=== PATIENT | female | born 1990 | race Caucasian/White ===

== ENCOUNTER 2017-04-05 10:24 | Observation (INO) | payer OTHER ==
[2017-04-05 10:42] VITALS: RESP 18; TEMP 98.9
[2017-04-05] MEDS ORDERED: Sodium Chloride 0.9% 1,000 ML IV STA (11:18)
--- NOTE | 2017-04-05 11:22 | ED PDOC ---
Arrival/HPI - General Historian: Patient - History of Present Illness Time/Duration: Other (2 days) Symptom Course: Unchanged Activities at Onset: Light Context: Home <Joshua Evans - Last Filed: 04/05/17 19:25> <James Herrera - Last Filed: 04/05/17 19:54> - General Chief Complaint: Abdominal Pain Time Seen by Provider: 04/05/17 11:13 - History of Present Illness Narrative History of Present Illness (Text): 04/05/17 11:18 26 year old female, who denies any prior medical history, presents to the emergency department complaining of epigastric and left lower abdominal pain. Patient states she went to [facility] on 02/25/17 for the same complaint, but was discharged and recommended to follow up for GI doctor. She also stated that no GI offices are opened until tomorrow, but could not handle the pain. Patient has been excessively vomiting and diarrhea 4 times a day, but denies any fever, chills, chest pain, shortness of breath, vaginal bleeding, dysuria, urinary symptoms, back pain, neck pain, headache, dizziness, or any other complaints. PMD: Dr. Horner (Joshua Evnas) Past Medical History - Provider Review Nursing Documentation Reviewed: Yes - Infectious Disease Hx of Infectious Diseases: None - Psychiatric Hx Substance Use: No <Joshua Evans - Last Filed: 04/05/17 19:25> Family/Social History - Physician Review Nursing Documentation Reviewed: Yes Family/Social History: No Known Family HX Smoking Status: Light Smoker < 10 Cigarettes Daily Hx Alcohol Use: No Hx Substance Use: No <Joshua Evans - Last Filed: 04/05/17 19:25> Allergies/Home Meds <Joshua Evans - Last Filed: 04/05/17 19:25> <James Herrera - Last Filed: 04/05/17 19:54> Allergies/Adverse Reactions: Allergies No Known Allergies Allergy (Verified 04/05/17 10:42) Home Medications: Home Meds Medication Instructions Recorded Confirmed Unobtainable 04/05/17 04/05/17 Review of Systems - Physician Review All systems were reviewed & negative as marked: Yes - Review of Systems Constitutional: absent: Fevers, Other (Chills) Respiratory: absent: SOB Cardiovascular: absent: Chest Pain Gastrointestinal: Abdominal Pain (epigastric and left-sided abdominal pain. ), Diarrhea, Vomiting. absent: Nausea Genitourinary Female: absent: Dysuria, Frequency, Hematuria, Vaginal Bleeding, Vaginal Discharge Musculoskeletal: absent: Back Pain Neurological: absent: Headache, Dizziness <NathanJoshua L - Last Filed: 04/05/17 19:25> Physical Exam Vital Signs Reviewed: Yes Temperature: Afebrile Blood Pressure: Normal Pulse: Regular Respiratory Rate: Normal Appearance: Positive for: Well-Appearing, Non-Toxic, Comfortable Pain Distress: None Mental Status: Positive for: Alert and Oriented X 3 - Systems Exam Head: Present: Atraumatic, Normocephalic Pupils: Present: PERRL Extroacular Muscles: Present: EOMI Mouth: Present: Moist Mucous Membranes Neck: Present: Normal Range of Motion Respiratory/Chest: Present: Clear to Auscultation, Good Air Exchange. No: Respiratory Distress, Accessory Muscle Use Cardiovascular: Present: Regular Rate and Rhythm, Normal S1, S2. No: Murmurs Abdomen: Present: Tenderness (Epigastric, midlower, left sided tenderness), Normal Bowel Sounds, Guarding. No: Distention, Peritoneal Signs, Rebound Back: Present: Normal Inspection. No: CVA Tenderness, Midline Tenderness, Paraspinal Tenderness Upper Extremity: Present: Normal Inspection. No: Cyanosis, Edema Lower Extremity: Present: Normal Inspection. No: Edema Neurological: Present: GCS=15, CN II-XII Intact, Speech Normal Skin: Present: Warm, Dry, Normal Color. No: Rashes Psychiatric: Present: Alert, Oriented x 3, Normal Insight, Normal Concentration <NathanJoshua L - Last Filed: 04/05/17 19:25> Medical Decision Making - Lab Interpretations I have reviewed the lab results: Yes Interpretation: Abnormal lab values (potassium low and replaced) <Joshua Evans - Last Filed: 04/05/17 19:25> <James Herrera - Last Filed: 04/05/17 19:54> ED Course and Treatment: 04/05/17 11:18 Impression: 26 year old female presents complaining of epigastric, midlower, left sided abdominal pain that began 2 days ago. Associated symptoms include vomiting and diarrhea. Ddx: Gastritis vs Gastroenteritis vs Colitis vs Pancreatitis Plan: -- CT Abdomine/Pelvis and IV contrast -- Labs -- IV Fluids -- Toradol -- Zofran Inj -- Reassess and disposition Progress Notes: (Joshua Evans) - Medication Orders Current Medication Orders: Discontinued Medications Sodium Chloride (Sodium Chloride 0.9%) 1,000 mls @ 1,000 mls/hr IV .Q1H STA Stop: 04/05/17 12:17 Last Admin: 04/05/17 11:39 Dose: 1,000 mls/hr Iohexol (Omnipaque 240 (50 Ml)) Confirm Administered Dose 50 ml .ROUTE .STK-MED ONE Stop: 04/05/17 11:24 Iohexol (Omnipaque 350 100 Ml) Confirm Administered Dose 350 mg .ROUTE .STK-MED ONE Stop: 04/05/17 15:21 Ketorolac Tromethamine (Toradol) 30 mg IVP STAT STA Stop: 04/05/17 11:19 Last Admin: 04/05/17 11:43 Dose: 30 mg Re-Assess: REI Pain Assessment Document 04/05/17 12:43 GMD (Rec: 04/05/17 13:06 GMD [id number]) Pain Reassessment Is this a pain reassessment? Yes Sleep Is patient sleeping during reassessment? No Presence of Pain Presence of Pain Yes Pain Scale Used Pain Scale Used Numeric Location Left, Right or Bilateral Right Upper or Lower Upper Pain Location Body Site Abdomen Description Intensity of Pain at present 9 Morphine Sulfate (Morphine) 4 mg IVP STAT STA Stop: 04/05/17 13:05 Last Admin: 04/05/17 13:13 Dose: 4 mg Ondansetron HCl (Zofran Inj) 4 mg IVP STAT STA Stop: 04/05/17 11:19 Last Admin: 04/05/17 11:43 Dose: 4 mg Ondansetron HCl (Zofran Inj) 4 mg IVP STAT STA Stop: 04/05/17 13:23 Last Admin: 04/05/17 13:31 Dose: 4 mg Potassium Chloride (K-Dur 20 Meq Er Tab) 40 meq PO ONCE ONE Stop: 04/05/17 13:26 Last Admin: 04/05/17 16:28 Dose: 40 meq ED OBSERVATION <Joshua Evans - Last Filed: 04/05/17 19:25> Discharge: Yes <James Herrera - Last Filed: 04/05/17 19:54> - Observation admission statement Patient is being placed in observation because:: Patient is being placed for epigastric, midlower, and left sided pain and tenderness since for the past 2 days. (Joshua Evans) - Goals of Observation Goals of observation are:: . (Joshua Evans) - Progress Note Progress Note: 04/05/17 11:21 Patient has been examined and will remain under Emergency department observation until ultimate goal of diagnosis. Patient currently in pain. 04/05/17 13:26 Patient remains in pain. Morphine was ordered 04/05/17 13:04 04/05/17 18:03 CT showed left pelvic dermoid cyst in the adnexal. TV sono ordered. 04/05/17 19:[address] Herrera who will f/u [facility], reeval and dispo ( Joshua Evans) 04/05/17 19:51 Case endorsed to me from pending TV ultrasound prior to discharge.Ultrasound confirms prior CT finding of dermoisd cyst.No torsion.Pt. 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 (James Herrera) - Scribe Statement The provider has reviewed the documentation as recorded by the Scribe <Joshua Evans - Last Filed: 04/05/17 19:25> <James Herrera - Last Filed: 04/05/17 19:54> - Scribe Statement Prabhu Jackson All medical record entries made by the Scribe were at my direction and personally dictated by me. I have reviewed the chart and agree that the record accurately reflects my personal performance of the history, physical exam, medical decision making, and the department course for this patient. I have also personally directed, reviewed, and agree with the discharge instructions and disposition. (Joshua Evans) Disposition/Present on Arrival - Present on Arrival Any Indicators Present on Arrival: No History of DVT/PE: No History of Uncontrolled Diabetes: No Urinary Catheter: No History of Decub. Ulcer: No History Surgical Site Infection Following: None - Disposition Have Diagnosis and Disposition been Completed?: Yes Disposition Time: 16:49 <Joshua Evans - Last Filed: 04/05/17 19:25> - Present on Arrival Any Indicators Present on Arrival: No - Disposition Have Diagnosis and Disposition been Completed?: Yes Disposition Time: 19:54 Patient Plan: Discharge <James eHrrera - Last Filed: 04/05/17 19:54> - Disposition Diagnosis: Abdominal pain, Ovarian cyst Patient Problems: Current Active Problems Problem Status Onset Abdominal pain Acute Condition: GOOD
[2017-04-05] MEDS ORDERED: Iohexol 240 (50 ml) ONE (11:23)
[2017-04-05 11:45] LABS: BASO # 0.01 K/mm3 (0.0-2.0); BASO % 0.1 % (0.0-3.0); EOS % 0.3 % (1.5-5.0); GRAN # 7.13 (1.4-6.5); GRAN % 67.9 % (50.0-68.0); HEMATOCRIT 41.5 % (36.0-48.0); LYMPH # 2.4 (1.2-3.4); LYMPH % 22.5 % (22.0-35.0); MEAN CELL VOLUME 88.9 fl (80.0-105.0); MEAN CORPUSCULAR HGB CONC 34.9 g/dl (31.0-37.0); MEAN PLATELET VOLUME 8.7 fl (7.0-11.0); MONO % 9.2 % (1.0-6.0); RED CELL DISTRIBUTION WIDTH 13.5 % (11.5-14.5); WHITE BLOOD COUNT 10.5 10^3/ul (4.5-11.0)
[2017-04-05 11:46] LABS: PH,URINE 7.5 (4.7-8.0); URINE BILIRUBIN NEGATIVE (NEGATIVE); URINE BLOOD TRACE-INTACT (NEGATIVE); URINE GLUCOSE (UA) NEGATIVE (NEGATIVE); URINE KETONE 15 mg/dL (NEGATIVE); URINE LEUKOCYTE ESTERASE NEGATIVE Leu/uL (NEGATIVE); URINE PROTEIN TRACE mg/dL (<30 mg/dL)
[2017-04-05 12:00] LABS: URINE APPEARANCE CLEAR (CLEAR); URINE COLOR YELLOW (YELLOW)
[2017-04-05 12:26] LABS: ALB/GLOB RATIO 1.4 (1.1-1.8); ALKALINE PHOSPHATASE 53 U/L (38-126); ALT/SGPT 64 U/L (7-56); AST/SGOT 36 U/L (14-36); BILIRUBIN,TOTAL 0.6 mg/dL (0.2-1.3); BLOOD UREA NITROGEN 7 mg/dL (7-21); CALCIUM 9.1 mg/dL (8.4-10.5); CARBON DIOXIDE 28 mmol/L (21-33); CHLORIDE 102 mmol/L (98-107); GFR AFRICAN-AMERICAN > 60; GLUCOSE,RANDOM 91 mg/dL (70-110); LIPASE 43 U/L (23-300); POTASSIUM 3.2 mmol/L (3.6-5.0); SODIUM 139 mmol/L (132-148); TOTAL PROTEIN 6.7 g/dL (5.8-8.3)
[2017-04-05 12:55] VITALS: O2SAT 100
[2017-04-05 13:00] LABS: URINE EPITHELIAL CELLS 0 - 2 /hpf (0-5); URINE WBC 0 - 2 /hpf (0-6)
[2017-04-05] MEDS ORDERED: Morphine 4 mg/ml ISec IVP STA (13:04)
[2017-04-05 13:09] LABS: INR 1.11 (0.93-1.08); PARTIAL THROMBOPLASTIN TIME 26.9 Seconds (23.7-30.8)
[2017-04-05] MEDS: Potassium Chloride 20 mEq ER Tab PO ONE ×3 (13:55→16:28)
[2017-04-05] MEDS ORDERED: Iohexol 350 MG/100 ML VIAL ONE (15:20)
--- NOTE | 2017-04-05 16:42 | CT ---
PROCEDURE: CT Abdomen and Pelvis with contrast HISTORY: Abdominal pain. Colitis/appendicitis suspected By history, negative test (concurrent with this examination). COMPARISON: None. TECHNIQUE: Contrast dose: 95 cc Omnipaque 350 Radiation dose: Total exam DLP = mGy-cm. This CT exam was performed using one or more of the following dose reduction techniques: Automated exposure control, adjustment of the mA and/or kV according to patient size, and/or use of iterative reconstruction technique. FINDINGS: LOWER THORAX: Unremarkable. LIVER: Unremarkable. No gross lesion or ductal dilatation. GALLBLADDER AND BILE DUCTS: Unremarkable. PANCREAS: Unremarkable. No gross lesion or ductal dilatation. SPLEEN: Unremarkable. ADRENALS: Unremarkable. No mass. KIDNEYS AND URETERS: Unremarkable. No hydronephrosis. No solid mass. VASCULATURE: Unremarkable. No aortic aneurysm. BOWEL: Unremarkable. No obstruction. No gross mural thickening. APPENDIX: Normal appendix. PERITONEUM: Unremarkable. No free fluid. No free air. LYMPH NODES: Unremarkable. No enlarged lymph nodes. BLADDER: Unremarkable. REPRODUCTIVE: Mass in the left hemipelvis containing calcium and fat likely dermoid arising from the left adnexa. BONES: No acute fracture. OTHER FINDINGS: None. IMPRESSION: No acute findings related to/accounting for the clinical presentation. Specifically no evidence of appendicitis or colitis. Additional benign and/or incidental findings described above.
[2017-04-05 18:56] VITALS: BP 136/88; PULSE 74
--- NOTE | 2017-04-05 19:47 | US ---
EXAM: US Pelvis Complete, Transabdominal CLINICAL HISTORY: 26 years old, female; Pain; Pelvic pain; Additional info: Please eval ovarian flow b/l; Eval dermoid cysst TECHNIQUE: Real-time transabdominal pelvic ultrasound (complete) with image documentation. COMPARISON: No relevant prior studies available. FINDINGS: Uterus: Uterus is anteflexed. Uterus measures approximately 7.7 x 3.5 x 4.7 cm. Endometrium measures approximately 3.2 mm in width. Right ovary: Right ovary measures approximately 4 x 2.1 x 3.8 cm. There are multiple follicles. There is a small solid-appearing nodule in the right ovary.There is expected blood flow on Doppler imaging Left ovary: Left ovary could not be identified Free fluid: There is trace free fluid in the cul-de-sac Bladder: Partially distended bladder is unremarkable IMPRESSION: No right ovarian torsion, nonvisualization of the left ovary; trace free fluid EXAM: US Pelvis, Transvaginal EXAM DATE/TIME: 04/05/2017 4:49 PM CLINICAL HISTORY: 26 years old, female; Pain; Pelvic pain; Additional info: Please eval ovarian flow b/l; Eval dermoid cysst TECHNIQUE: Real-time transvaginal pelvic ultrasound (complete) with image documentation. Transvaginal imaging was used for better evaluation of the endometrium and adnexa. COMPARISON: CT - ABD PELVIS PO IV CONTRAST 04/05/2017 3:19:44 PM FINDINGS: Uterus: Endometrium measures approximately 6 mm in width. Right ovary: Right ovary measures approximately 3.75 x 2.07 x 3.23 cm. There are multiple follicles. There is a hemorrhagic cyst.There is expected blood flow on Doppler imaging Left ovary: Left ovary measures approximately 3.47 x 2.39 x 3.46 cm. There are multiple small follicles. There is a 2.67 x 2.29 x 2.45 cm solid mass in the left ovary. There is a focal area of shadowing.There is expected blood flow on Doppler imaging Free fluid: There is a small amount of free fluid. Bladder: Bladder is empty IMPRESSION: IMPRESSION: Solid left ovarian lesion with focal shadowing calcification consistent with dermoid, no torsion; probable hemorrhagic cyst in the right ovary, no torsion; normal endometrium
== END 2017-04-05 19:53 | disposition home or self-care (01) ==
LOC: ED 10:24 → EROBSV 11:18 → MERGE 11:18
PROVIDERS: ADMIT Emergency Medicine; ATTEND Emergency Medicine
DX: N83.201 Unspecified ovarian cyst, right side (principal); R10.9 Unspecified abdominal pain
CPT/HCPCS: 74177; 76830; 80053; 81001; 83690; 85025; 85610; 85730; 87086; 96374; 96375; 96376; 99285; G0378; J1885; J2270; J2405; J7040; Q9966; Q9967

== ENCOUNTER 2017-08-13 03:02 | Emergency (ER) | payer SELFPAY ==
[2017-08-13 03:18] VITALS: TEMP 97.5; O2SAT 99
--- NOTE | 2017-08-13 03:31 | ED PDOC ---
Arrival/HPI - General Chief Complaint: Abdominal Pain Time Seen by Provider: 08/13/17 03:08 Historian: Patient - History of Present Illness Narrative History of Present Illness (Text): 08/13/17 03:30 Damaris Mendes is a 27 year old female, whose past medical history includes ovarian cysts, who presents to the Emergency department complaining of LLQ abdominal pain tonight. Patient also reports nausea and vomiting at home. Patient notes similar symptoms previously when she was diagnosed with an ovarian cyst. Patient denies any fever, chills, chest pain, shortness of breath , diarrhea, urinary symptoms, back pain, neck pain, headache, dizziness, or any other complaints. Time/Duration: Other (tonight) Symptom Onset: Gradual Symptom Course: Unchanged Activities at Onset: Light Context: Home Past Medical History - Provider Review Nursing Documentation Reviewed: Yes - Infectious Disease Hx of Infectious Diseases: None - Psychiatric Hx Substance Use: Yes (Smokes Marijuana) Family/Social History - Physician Review Nursing Documentation Reviewed: Yes Family/Social History: Unknown Family HX Smoking Status: Light Smoker < 10 Cigarettes Daily Hx Alcohol Use: No Hx Substance Use: Yes (Smokes Marijuana) Allergies/Home Meds Allergies/Adverse Reactions: Allergies No Known Allergies Allergy (Verified 08/13/17 03:13) Home Medications: Home Meds Medication Instructions Recorded Confirmed No Known Home Med 08/13/17 08/13/17 Review of Systems - Physician Review All systems were reviewed & negative as marked: Yes - Review of Systems Constitutional: Normal. absent: Fevers Eyes: Normal ENT: Normal Respiratory: Normal. absent: SOB, Cough Cardiovascular: Normal. absent: Chest Pain Gastrointestinal: Abdominal Pain, Nausea, Vomiting. absent: Diarrhea Genitourinary Female: Normal. absent: Dysuria, Frequency, Hematuria, Urine Output Changes Musculoskeletal: Normal. absent: Back Pain, Neck Pain Skin: Normal. absent: Rash Neurological: Normal. absent: Headache, Dizziness Endocrine: Normal Hemo/Lymphatic: Normal Psychiatric: Normal Physical Exam Vital Signs Reviewed: Yes Vital Signs Temp Pulse Resp BP Pulse Ox 08/13/17 05:48 80 19 103/50 L 99 08/13/17 03:13 97.5 F L 90 18 124/81 99 Temperature: Afebrile Blood Pressure: Normal Pulse: Regular Respiratory Rate: Normal Appearance: Positive for: Well-Appearing, Non-Toxic, Comfortable Pain Distress: None Mental Status: Positive for: Alert and Oriented X 3 - Systems Exam Head: Present: Atraumatic, Normocephalic Pupils: Present: PERRL Extroacular Muscles: Present: EOMI Conjunctiva: Present: Normal Mouth: Present: Moist Mucous Membranes Neck: Present: Normal Range of Motion Respiratory/Chest: Present: Clear to Auscultation, Good Air Exchange. No: Respiratory Distress, Accessory Muscle Use Cardiovascular: Present: Regular Rate and Rhythm, Normal S1, S2. No: Murmurs Abdomen: Present: Tenderness (LLQ tenderness), Normal Bowel Sounds. No: Distention, Peritoneal Signs Back: Present: Normal Inspection Upper Extremity: Present: Normal Inspection. No: Cyanosis, Edema Lower Extremity: Present: Normal Inspection. No: Edema Neurological: Present: GCS=15, CN II-XII Intact, Speech Normal Skin: Present: Warm, Dry, Normal Color. No: Rashes Psychiatric: Present: Alert, Oriented x 3, Normal Insight, Normal Concentration Medical Decision Making ED Course and Treatment: 08/13/17 03:30 Impression: 27 year old female complaining of LLQ pain, nausea, and vomiting. Plan: -- Labs -- Urinalysis -- IV fluids -- Toradol -- Reassess and disposition Prior Visits: Notes and results from previous visits were reviewed. Progress Notes: 08/13/17 05:56 On re-evaluation, patient feels better and is in no acute distress. I have discussed the results and plan with the patient, who expresses understanding. Patient in agreement with plan to be discharged home. Patient is stable for discharge. Patient was instructed to follow up with physician or return if symptoms worsen or new concerning symptoms arise. - Lab Interpretations Lab Results: 08/13/17 03:50 08/13/17 03:50 Lab Results 08/13/17 03:50: Urine Color Yellow, Urine Appearance Clear, Urine pH 6.5, Ur Specific [place] 1.020, Urine Protein Negative, Urine Glucose (UA) Negative, Urine Ketones Negative, Urine Blood Negative, Urine Nitrate Negative, Urine Bilirubin Negative, Urine Urobilinogen 0.2, Ur Leukocyte Esterase Negative 08/13/17 03:50: Sodium 142, Potassium 3.9, Chloride 106, Carbon Dioxide 26, Anion Gap 13, BUN 8, Creatinine 0.5 L, Est GFR ( Amer) > 60, Est GFR (Non -Af Amer) > 60, Random Glucose 92, Calcium 9.3, Total Bilirubin 0.4, AST 37 H, ALT 27, Alkaline Phosphatase 42, Total Protein 6.8, Albumin 3.9, Globulin 2.9, Albumin/Globulin Ratio 1.3 08/13/17 03:50: WBC 7.5 D, RBC 3.97, Hgb 12.4 D, Hct 36.1, MCV 90.9, MCH 31.2 , MCHC 34.3, RDW 13.2, Plt Count 211, MPV 9.1, Gran % 75.4 H, Lymph % (Auto) 19.3 L, [place] % (Auto) 4.7, Eos % (Auto) 0.5 L, Baso % (Auto) 0.1, Gran # 5.66, Lymph # 1.5, [place] # 0.4, Eos # 0.0, Baso # 0.01 - Medication Orders Current Medication Orders: Discontinued Medications Sodium Chloride (Sodium Chloride 0.9%) 1,000 mls @ 80 mls/hr IV .[id number] NOBLE Last Admin: 08/13/17 03:56 Dose: 80 mls/hr eMAR Start Stop Document 08/13/17 03:56 CNR (Rec: 08/13/17 03:56 CNR [id number]) Intravenous Solution Start Date 08/13/17 Start Time 03:56 Ketorolac Tromethamine (Toradol) 30 mg IVP ONCE ONE Stop: 08/13/17 03:35 Last Admin: 08/13/17 03:56 Dose: 30 mg MAR Pain Assessment Document 08/13/17 03:56 CNR (Rec: 08/13/17 03:56 CNR [id number]) Pain Reassessment Is this a pain reassessment? Yes Location Pain Location Body Site Abdomen Description Description Constant IVP Administration Document 08/13/17 03:56 CNR (Rec: 08/13/17 03:56 CNR [id number]) Charges for Administration # of IVP Administrations 1 Ondansetron HCl (Zofran Inj) 4 mg IVP STAT STA Stop: 08/13/17 04:21 Last Admin: 08/13/17 04:22 Dose: 4 mg IVP Administration Document 08/13/17 04:22 CNR (Rec: 08/13/17 04:22 CNR [id number]) Charges for Administration # of IVP Administrations 1 - Scribe Statement The provider has reviewed the documentation as recorded by the Monae Viera Provider Scribe Attestation: All medical record entries made by the Scribe were at my direction and personally dictated by me. I have reviewed the chart and agree that the record accurately reflects my personal performance of the history, physical exam, medical decision making, and the department course for this patient. I have also personally directed, reviewed, and agree with the discharge instructions and disposition. Disposition/Present on Arrival - Present on Arrival Any Indicators Present on Arrival: No History of DVT/PE: No History of Uncontrolled Diabetes: No Urinary Catheter: No History of Decub. Ulcer: No History Surgical Site Infection Following: None - Disposition Have Diagnosis and Disposition been Completed?: Yes Diagnosis: Ovarian cyst Disposition: HOME/ ROUTINE Disposition Time: 05:56 Condition: UNKNOWN Discharge Instructions (ExitCare): Ovarian Cyst (ED) Forms: [employer] (Indonesian)
[2017-08-13] MEDS ORDERED: Sodium Chloride 0.9% 1,000 ML IV SCH (03:45)
[2017-08-13 04:11] LABS: PH,URINE 6.5 (4.7-8.0); URINE BILIRUBIN NEGATIVE (NEGATIVE); URINE BLOOD NEGATIVE (NEGATIVE); URINE GLUCOSE (UA) NEGATIVE (NEGATIVE); URINE LEUKOCYTE ESTERASE NEGATIVE Leu/uL (NEGATIVE); URINE NITRATE NEGATIVE (NEGATIVE); URINE PROTEIN NEGATIVE mg/dL (<30 mg/dL); URINE UROBILINOGEN 0.2 E.U./dL (<1 E.U./dL)
[2017-08-13 04:17] LABS: BASO # 0.01 K/mm3 (0.0-2.0); BASO % 0.1 % (0.0-3.0); EOS % 0.5 % (1.5-5.0); GRAN # 5.66 (1.4-6.5); GRAN % 75.4 % (50.0-68.0); LYMPH # 1.5 (1.2-3.4); LYMPH % 19.3 % (22.0-35.0); MEAN CELL VOLUME 90.9 fl (80.0-105.0); MEAN CORPUSCULAR HEMOGLOBIN 31.2 pg (25.0-35.0); MEAN CORPUSCULAR HGB CONC 34.3 g/dl (31.0-37.0); MEAN PLATELET VOLUME 9.1 fl (7.0-11.0); MONO # 0.4 (0.1-0.6); MONO % 4.7 % (1.0-6.0); RBC 3.97 10^6/uL (3.5-6.1); RED CELL DISTRIBUTION WIDTH 13.2 % (11.5-14.5); WHITE BLOOD COUNT 7.5 10^3/ul (4.5-11.0)
[2017-08-13 04:27] LABS: HEMOGLOBIN 12.4 g/dL (12.0-16.0); URINE APPEARANCE CLEAR (CLEAR); URINE COLOR YELLOW (YELLOW)
[2017-08-13 04:47] LABS: ALB/GLOB RATIO 1.3 (1.1-1.8); ALBUMIN 3.9 g/dL (3.0-4.8); ALT/SGPT 27 U/L (7-56); AST/SGOT 37 U/L (14-36); BLOOD UREA NITROGEN 8 mg/dL (7-21); CALCIUM 9.3 mg/dL (8.4-10.5); GFR AFRICAN-AMERICAN > 60; GFR NON-AFRICAN AMERICAN > 60
[2017-08-13 05:50] VITALS: BP 103/50; PULSE 80; RESP 19
== END 2017-08-13 06:00 | disposition home or self-care (01) ==
LOC: ED 03:02
DX: N83.202 Unspecified ovarian cyst, left side (principal); F17.210 Nicotine dependence, cigarettes, uncomplicated
CPT/HCPCS: 80053; 81003; 85025; 96374; 96375; 99283; J1885; J2405; J7040